=== PATIENT | male | born 1945 | race Caucasian/White ===

== ENCOUNTER 2022-12-27 12:25 | Day surgery (SDC) | payer OTHER ==
[~2022-12-27] VITALS: Ht 172.7 cm; Wt 85.9 kg
[2022-12-27] MEDS ORDERED: TRAZ50 PO (13:13)
--- NOTE | 2022-12-27 13:19 | NUR ---
12/27/22 1319 Ashlee [place] CALL LIGHT WITHIN REACH. TETRACAINE IN THE RIGHT EYE AT 1315 AND PLEDGETT IN AT 1319
== END 2022-12-27 14:42 | disposition home or self-care (01) ==
LOC: ORSCSDS 12:25
PROVIDERS: Ophthalmology
PROC: 08RJ3JZ Replacement of Right Lens with Synthetic Substitute, Percutaneous Approach (ICD-10-PCS; principal; 2022-12-27 14:00)
DX: H25.11 Age-related nuclear cataract, right eye (principal); H52.201 Unspecified astigmatism, right eye; I10 Essential (primary) hypertension; Z79.899 Other long term (current) drug therapy
CPT/HCPCS: J2001; J2250; J3010; J3301; J7040; V2632